=== PATIENT | female | born 1990 | race Hispanic/Latino ===

== ENCOUNTER 2017-06-25 13:47 | Emergency (ER) | payer BC, OTHER, SELFPAY ==
[2017-06-25] MEDS ORDERED: Ibuprofen 100 MG/5 ML UDCUP ONE (13:56)
== END 2017-06-25 14:42 | disposition home or self-care (01) ==
LOC: ERS 13:47
DX: J11.1 Influenza due to unidentified influenza virus with other respiratory manifestations (principal)
CPT/HCPCS: 87804; 99283